=== PATIENT | female | born 1950 | race Two or more races ===

== ENCOUNTER 2021-09-10 12:30 | Inpatient (IN) | payer MEDICARE, MEDICAID ==
[2021-09-09 21:24] VITALS: BP 127/68
[~2021-09-10] VITALS: Ht 157.5 cm; Wt 46.8 kg
[2021-09-10] MEDS ORDERED: MAGNESIUM/ALUMINUM HYDROXIDE/SIMETHICONE 30ML UDC PO STA (13:19)
[2021-09-10] MEDS ORDERED: VISCOUS LIDOCAINE 2% 15 ML UDC PO STA (13:19)
[2021-09-10] MEDS ORDERED: HYDROCODONE/ACETAMINOPHEN 5/325MG TABLET PO STA (13:19)
[2021-09-10] MEDS ORDERED: FAMOTIDINE 20MG TABLET PO ONE (13:30)
[2021-09-10] MEDS ORDERED: HYDROCODONE/ACETAMINOPHEN 5/325MG TABLET PO NR (13:45)
[2021-09-10 13:51] LABS: BASOPHILS % 0.5 % (0.0-2.0); EOSINOPHILS % 0.3 % (0.0-5.0); HEMATOCRIT. 32.8 % (36.0-48.0); HEMOGLOBIN. 11.4 g/dL (12.0-16.0); LYMPHOCYTES % 17.3 % (20.0-50.0); MEAN CORPUSCULAR HEMOGLOBIN 34.8 pg (28.0-32.0); MEAN CORPUSCULAR VOLUME 99.8 fL (81.0-99.0); MEAN PLATELET VOLUME 7.7 fl (7.4-10.4); MONOCYTES % 7.7 % (2.0-8.0); NEUTROPHILS % 74.2 % (40.0-76.0); PLATELET 240 x1000/uL (130-400); RED BLOOD CELL COUNT 3.29 mill/uL (4.2-5.4); RED CELL DISTRIBUTION WIDTH 21.3 % (11.6-14.6)
[2021-09-10 13:52] LABS: CHLORIDE 97 mEq/L (98-107)
[2021-09-10 13:55] LABS: INR 1.1; PROTHROMBIN TIME 11.4 sec (9.6-11.0)
[2021-09-10] MEDS ORDERED: ONDANSETRON HCL 4MG/2ML INJ IV STA (14:09)
[2021-09-10] MEDS ORDERED: MORPHINE SULFATE 2 MG/ML CPJ (NOT FOR IM USE) IV NR (14:15)
[2021-09-10] MEDS ORDERED: MORPHINE SULFATE 4 MG/ML CPJ (NOT FOR IM USE) IV ONE (14:15)
[2021-09-10] MEDS ORDERED: SODIUM CHLORIDE 0.9% 1,000 ML IV ONE (14:15)
[2021-09-10] MEDS ORDERED: POTASSIUM CHLORIDE INJ 40 MEQ in DEXT 5% WATER 250 ML IV ONE (14:15)
[2021-09-10] MEDS ORDERED: METRONIDAZOLE 500 MG PREMIX 100 ML IV NR (15:30)
[2021-09-10] MEDS ORDERED: CEFTRIAXONE 1 G PREMIX 50 ML IV NR (15:30)
[2021-09-10 17:19] LABS: CLARITY URINE CLOUDY (CLEAR); COLOR URINE DARK YELLOW (YELLOW); KETONES URINE 1+ (NEGATIVE); LEUKOCYTE ESTERASE URINE NEGATIVE (NEGATIVE); NITRITE URINE NEGATIVE (NEGATIVE); OCCULT BLOOD URINE NEGATIVE (NEGATIVE); PH URINE 5.5 (4.5-8.0); PROTEIN URINE 2+ (NEGATIVE); SPECIFIC GRAVITY URINE 1.036 (1.005-1.030)
[2021-09-10] MEDS ORDERED: TRAMADOL 50MG TABLET PO PRN (18:00)
[2021-09-10] MEDS ORDERED: DOCUSATE SODIUM 100MG CAPSULE PO PRN (18:00)
[2021-09-10] MEDS ORDERED: IPRATROPIUM/ALBUTEROL 0.5-3(2.5)MG/3ML NEB NEB PRN (18:00)
[2021-09-10] MEDS ORDERED: PIPERACILLIN/TAZ 3.375G PREMIX 50 ML IV SCH (18:00)
[2021-09-10] MEDS ORDERED: ONDANSETRON HCL 4MG/2ML INJ IV PRN (18:00)
[2021-09-10] MEDS ORDERED: GUAIFENESIN 200MG/10ML SUGAR FREE UDC PO PRN (18:00)
[2021-09-10] MEDS ORDERED: ACETAMINOPHEN 325MG TABLET PO PRN ×2 (18:00)
[2021-09-10] MEDS ORDERED: MAGNESIUM/ALUMINUM HYDROXIDE/SIMETHICONE 30ML UDC PO PRN (18:00)
[2021-09-10] MEDS ORDERED: CLONIDINE 0.1MG TABLET PO PRN (18:00)
[2021-09-10] MEDS ORDERED: NA PHOS,M-B/NA PHOS,DI-BA ENEMA 118ML PR PRN (18:00)
[2021-09-10] MEDS ORDERED: NITROGLYCERIN 0.4MG TABLET SL SL PRN (18:00)
[2021-09-10 18:38] LABS: ETHANOL BLOOD < 10 mg/dL
[2021-09-10 18:43] LABS: TOTAL IRON BINDING CAPACITY 201 ug/dL (250-450)
[2021-09-10] MEDS ORDERED: KCL 20MEQ/100ML PREMIX 100 ML IV NR (19:30)
[2021-09-10] MEDS: ENOXAPARIN 30MG/0.3ML SYR SUBCUT SCH (19:34)
[2021-09-10] MEDS: PIPERACILLIN/TAZ 3.375G PREMIX 50 ML IV NR (19:42)
[2021-09-10] MEDS: MORPHINE SULFATE 2 MG/ML CPJ (NOT FOR IM USE) IV PRN (20:45)
[2021-09-10 21:24] VITALS: BP 127/68
[2021-09-10] MEDS: ZOLPIDEM TARTRATE 5MG TABLET PO PRN (23:35)
[2021-09-11] VITALS: BP 130/68
[2021-09-11] MEDS ORDERED: *PATIENT'S OWN MEDICATION STORAGE XX SCH (00:45)
[2021-09-11 04:00] VITALS: BP 100/53
[2021-09-11] MEDS: MORPHINE SULFATE 2 MG/ML CPJ (NOT FOR IM USE) IV PRN ×3 (04:25→17:52)
[2021-09-11] MEDS: PIPERACILLIN/TAZOBACTAM 3.375G in DEXT 5% WATER 50ML IV SCH ×2 (06:17→14:24)
[2021-09-11] MEDS: DEXT 5%/LACTATED RINGERS 1,000 ML IV SCH ×2 (06:20→20:56)
[2021-09-11 07:03] LABS: BASOPHILS % 0.6 % (0.0-2.0); EOSINOPHILS % 0.5 % (0.0-5.0); HEMATOCRIT. 26.3 % (36.0-48.0); HEMOGLOBIN. 9.4 g/dL (12.0-16.0); LYMPHOCYTES % 27.3 % (20.0-50.0); MEAN CORPUSCULAR HEMOGLOBIN 35.7 pg (28.0-32.0); MEAN CORPUSCULAR VOLUME 99.2 fL (81.0-99.0); MONOCYTES % 9.4 % (2.0-8.0); NEUTROPHILS % 62.2 % (40.0-76.0); PLATELET 152 x1000/uL (130-400); RED BLOOD CELL COUNT 2.65 mill/uL (4.2-5.4); RED CELL DISTRIBUTION WIDTH 21.9 % (11.6-14.6)
[2021-09-11 07:29] LABS: CHLORIDE 101 mEq/L (98-107)
[2021-09-11 07:40] LABS: PHOSPHORUS 1.8 mg/dL (2.5-4.9)
[2021-09-11 08:00] VITALS: BP 106/57
[2021-09-11] MEDS ORDERED: NALOXONE HCL 0.4MG/ML VIAL IV PRN (08:45)
[2021-09-11] MEDS: PANTOPRAZOLE SODIUM 40 MG/VIAL IV SCH (08:51)
[2021-09-11] MEDS: ZINC SULFATE 220 MG ( 50 ) CAPSULE PO SCH (08:53)
[2021-09-11] MEDS ORDERED: POTASSIUM CHLORIDE 20MEQ TABLET SR PO SCH (09:00)
[2021-09-11] MEDS ORDERED: POTASSIUM CHLORIDE INJ 40 MEQ in DEXT 5% WATER 500 ML IV NR (11:00)
[2021-09-11 12:00] VITALS: BP 121/69
[2021-09-11 12:49] LABS: *AMPHETAMINES SCREEN URINE NEGATIVE (NEGATIVE); *BARBITURATES SCREEN URINE PRESUMTIVE POSITIVE (NEGATIVE); *COCAINE SCREEN URINE NEGATIVE (NEGATIVE)
[2021-09-11 12:50] LABS: *BENZODIAZEPINES SCREEN URINE NEGATIVE (NEGATIVE); CANNABINOID URINE SCREEN NEGATIVE (NEGATIVE); METHADONE URINE SCREEN NEGATIVE (NEGATIVE); OPIATES URINE SCREEN PRESUMTIVE POSITIVE (NEGATIVE); PHENCYCLIDINE URINE SCREEN NEGATIVE (NEGATIVE)
[2021-09-11 16:00] VITALS: BP 110/64
[2021-09-11] MEDS: ENOXAPARIN 30MG/0.3ML SYR SUBCUT SCH (17:41)
[2021-09-11 20:00] VITALS: BP 118/67
[2021-09-11] MEDS ORDERED: MAGNESIUM 2 G PREMIX 50 ML IV NR (21:00)
[2021-09-11] MEDS ORDERED: POTASSIUM PHOS,M-BASIC-D-BASIC 20 MMOL in DEXT 5% WATER 243.3333 ML IV NR (21:00)
[2021-09-12] VITALS (7 sets, daily range): BP systolic 91–142; BP diastolic 55–89
[2021-09-12] MEDS: MORPHINE SULFATE 2 MG/ML CPJ (NOT FOR IM USE) IV PRN ×4 (04:01→17:37)
[2021-09-12] MEDS: PIPERACILLIN/TAZOBACTAM 3.375G in DEXT 5% WATER 50ML IV SCH ×3 (04:06→22:00)
[2021-09-12] MEDS: ZINC SULFATE 220 MG ( 50 ) CAPSULE PO SCH (09:06)
[2021-09-12] MEDS: FOLIC ACID 1MG TABLET PO SCH (09:06)
[2021-09-12] MEDS: PANTOPRAZOLE SODIUM 40 MG/VIAL IV SCH (09:06)
[2021-09-12] MEDS: MULTIVITAMINS,THER W-MINERALS TABLET PO SCH (09:06)
[2021-09-12] MEDS: DEXT 5%/LACTATED RINGERS 1,000 ML IV SCH ×2 (09:07→23:20)
[2021-09-12] MEDS: THIAMINE HCL 100MG TABLET PO SCH (09:07)
[2021-09-12 09:59] LABS: BASOPHILS % 0.4 % (0.0-2.0); EOSINOPHILS % 0.3 % (0.0-5.0); HEMATOCRIT. 28.2 % (36.0-48.0); HEMOGLOBIN. 9.8 g/dL (12.0-16.0); LYMPHOCYTES % 22.4 % (20.0-50.0); MEAN CORPUSCULAR HEMOGLOBIN 35.1 pg (28.0-32.0); MEAN CORPUSCULAR VOLUME 101.5 fL (81.0-99.0); MEAN PLATELET VOLUME 8.2 fl (7.4-10.4); NEUTROPHILS % 63.9 % (40.0-76.0); PLATELET 131 x1000/uL (130-400); RED BLOOD CELL COUNT 2.78 mill/uL (4.2-5.4); RED CELL DISTRIBUTION WIDTH 21.7 % (11.6-14.6)
[2021-09-12 10:11] LABS: CHLORIDE 103 mEq/L (98-107)
[2021-09-12 10:20] LABS: PHOSPHORUS 2.6 mg/dL (2.5-4.9)
[2021-09-12] MEDS ORDERED: POTASSIUM CHLORIDE INJ 60 MEQ in DEXT 5% WATER 500 ML IV SCH (13:00)
[2021-09-12] MEDS: ENOXAPARIN 30MG/0.3ML SYR SUBCUT SCH (18:19)
[2021-09-12] MEDS ORDERED: VANCOMYCIN HCL 1000 MG/20 ML ORAL PO SCH (18:30)
[2021-09-12] MEDS: VANCOMYCIN HCL 1000 MG/20 ML ORAL PO SCH (19:30)
[2021-09-13] VITALS: BP 140/77
[2021-09-13] MEDS: VANCOMYCIN HCL 1000 MG/20 ML ORAL PO SCH ×5 (01:11→18:22)
[2021-09-13] MEDS: MORPHINE SULFATE 2 MG/ML CPJ (NOT FOR IM USE) IV PRN ×5 (01:11→18:53)
[2021-09-13 01:48] LABS: FOLIC ACID (FOLATE) SERUM 2.6 ng/mL (>5.38)
[2021-09-13 04:00] VITALS: BP 115/70
[2021-09-13] MEDS: PIPERACILLIN/TAZOBACTAM 3.375G in DEXT 5% WATER 50ML IV SCH ×3 (06:00→21:55)
[2021-09-13 07:27] LABS: BASOPHILS % 0.4 % (0.0-2.0); EOSINOPHILS % 0.8 % (0.0-5.0); HEMOGLOBIN. 9.8 g/dL (12.0-16.0); LYMPHOCYTES % 27.6 % (20.0-50.0); MEAN CORPUSCULAR HEMOGLOBIN 35.5 pg (28.0-32.0); MEAN CORPUSCULAR VOLUME 101.5 fL (81.0-99.0); MEAN PLATELET VOLUME 8.4 fl (7.4-10.4); MONOCYTES % 12.4 % (2.0-8.0); NEUTROPHILS % 58.8 % (40.0-76.0); PLATELET 123 x1000/uL (130-400); RED BLOOD CELL COUNT 2.76 mill/uL (4.2-5.4); RED CELL DISTRIBUTION WIDTH 21.9 % (11.6-14.6)
[2021-09-13 07:29] LABS: CHLORIDE 104 mEq/L (98-107)
[2021-09-13 08:00] VITALS: BP 131/79
[2021-09-13] MEDS: ZINC SULFATE 220 MG ( 50 ) CAPSULE PO SCH (09:00)
[2021-09-13] MEDS: THIAMINE HCL 100MG TABLET PO SCH (09:00)
[2021-09-13] MEDS: FOLIC ACID 1MG TABLET PO SCH (09:00)
[2021-09-13] MEDS: MULTIVITAMINS,THER W-MINERALS TABLET PO SCH (09:00)
[2021-09-13] MEDS: PANTOPRAZOLE SODIUM 40 MG/VIAL IV SCH (09:04)
[2021-09-13] MEDS: DEXT 5%/LACTATED RINGERS 1,000 ML IV SCH (11:59)
[2021-09-13 12:00] VITALS: BP 118/68
[2021-09-13] MEDS: PIPERACILLIN/TAZ 3.375G PREMIX 50 ML IV NR (14:52)
[2021-09-13 16:00] VITALS: BP 105/62
[2021-09-13] MEDS: ENOXAPARIN 30MG/0.3ML SYR SUBCUT SCH (18:21)
[2021-09-13 20:00] VITALS: BP 96/53
[2021-09-13] MEDS: ZOLPIDEM TARTRATE 5MG TABLET PO PRN (21:55)
[2021-09-14] VITALS: BP 116/59
[2021-09-14] MEDS: VANCOMYCIN HCL 1000 MG/20 ML ORAL PO SCH ×5 (00:49→23:18)
[2021-09-14] MEDS: MORPHINE SULFATE 2 MG/ML CPJ (NOT FOR IM USE) IV PRN ×5 (01:50→22:09)
[2021-09-14] MEDS: DEXT 5%/LACTATED RINGERS 1,000 ML IV SCH ×2 (02:00→15:20)
[2021-09-14 04:00] VITALS: BP 119/71
[2021-09-14] MEDS: PIPERACILLIN/TAZOBACTAM 3.375G in DEXT 5% WATER 50ML IV SCH (06:18)
[2021-09-14 08:00] VITALS: BP 116/65
[2021-09-14] MEDS: ZINC SULFATE 220 MG ( 50 ) CAPSULE PO SCH ×2 (09:00→09:41)
[2021-09-14] MEDS: FOLIC ACID 1MG TABLET PO SCH ×2 (09:00→09:41)
[2021-09-14] MEDS: MULTIVITAMINS,THER W-MINERALS TABLET PO SCH ×2 (09:00→09:41)
[2021-09-14] MEDS: THIAMINE HCL 100MG TABLET PO SCH ×2 (09:00→09:41)
[2021-09-14] MEDS: FAMOTIDINE 20MG/2ML VIAL IV SCH (09:41)
[2021-09-14] MEDS ORDERED: AZITHROMYCIN 500 MG TABLET PO SCH (10:00)
[2021-09-14 12:00] VITALS: BP 124/72
[2021-09-14] MEDS ORDERED: AZITHROMYCIN 500 MG in DEXT 5% WATER 250 ML IV SCH (15:00)
[2021-09-14] MEDS ORDERED: KCL 20MEQ/100ML PREMIX 100 ML IV SCH (15:00)
[2021-09-14 16:00] VITALS: BP 111/65
[2021-09-14] MEDS: ENOXAPARIN 30MG/0.3ML SYR SUBCUT SCH (18:12)
[2021-09-14 20:00] VITALS: BP 125/69
[2021-09-14] MEDS: ZOLPIDEM TARTRATE 5MG TABLET PO PRN (23:18)
[2021-09-15] VITALS: BP 118/58
[2021-09-15 04:00] VITALS: BP 128/60
[2021-09-15] MEDS: DEXT 5%/LACTATED RINGERS 1,000 ML IV SCH (04:40)
[2021-09-15] MEDS: VANCOMYCIN HCL 1000 MG/20 ML ORAL PO SCH ×2 (06:37→12:30)
[2021-09-15] MEDS: MORPHINE SULFATE 2 MG/ML CPJ (NOT FOR IM USE) IV PRN ×2 (06:38→11:50)
[2021-09-15 08:00] VITALS: BP 118/66
[2021-09-15] MEDS: THIAMINE HCL 100MG TABLET PO SCH (09:33)
[2021-09-15] MEDS: FOLIC ACID 1MG TABLET PO SCH (09:33)
[2021-09-15] MEDS: ZINC SULFATE 220 MG ( 50 ) CAPSULE PO SCH (09:33)
[2021-09-15] MEDS: MULTIVITAMINS,THER W-MINERALS TABLET PO SCH (09:33)
[2021-09-15] MEDS: FAMOTIDINE 20MG/2ML VIAL IV SCH (09:47)
[2021-09-15 12:00] VITALS: BP 133/79
[2021-09-15 12:00] LABS: BASOPHILS % 0.4 % (0.0-2.0); EOSINOPHILS % 0.9 % (0.0-5.0); HEMATOCRIT. 31.5 % (36.0-48.0); HEMOGLOBIN. 10.9 g/dL (12.0-16.0); LYMPHOCYTES % 19.4 % (20.0-50.0); MEAN CORPUSCULAR HEMOGLOBIN 35.4 pg (28.0-32.0); MEAN PLATELET VOLUME 8.6 fl (7.4-10.4); MONOCYTES % 14.8 % (2.0-8.0); NEUTROPHILS % 64.5 % (40.0-76.0); PLATELET 152 x1000/uL (130-400); RED BLOOD CELL COUNT 3.09 mill/uL (4.2-5.4); RED CELL DISTRIBUTION WIDTH 22.8 % (11.6-14.6)
[2021-09-15 12:14] LABS: CHLORIDE 103 mEq/L (98-107)
[2021-09-15] MEDS ORDERED: TRIA0.2579 PO (12:49)
[2021-09-15] MEDS ORDERED: BUTA1CAP45 MT (12:49)
[2021-09-15] MEDS ORDERED: T4 PO (12:51)
[2021-09-15 13:25] LABS: HEPATITIS B SURFACE ANTIGEN NEGATIVE
[2021-09-15 14:09] LABS: PLATELET ESTIMATE NORMAL
[2021-09-15] MEDS ORDERED: POTASSIUM CHLORIDE 20MEQ/PACKET PO NR (19:15)
[2021-09-16] MEDS ORDERED: FAMOTIDINE 20MG TABLET PO SCH (09:00)
== END 2021-09-15 15:55 | disposition home or self-care (01) | DRG 445 ==
LOC: ER 12:30 → 6EST 17:02 → EDBEDREQTM 17:13 → EDBEDREQ 17:13 → SUPCPDRO 18:07 → ENRESERV 20:04
PROVIDERS: ADMIT Internal Medicine; ATTEND Internal Medicine
DX: K80.20 Calculus of gallbladder without cholecystitis without obstruction (principal); E44.1 Mild protein-calorie malnutrition; A04.72 Enterocolitis due to Clostridium difficile, not specified as recurrent; K83.09 Other cholangitis; Z68.1 Body mass index [BMI] 19.9 or less, adult; K70.10 Alcoholic hepatitis without ascites; E83.51 Hypocalcemia; D63.8 Anemia in other chronic diseases classified elsewhere; D53.9 Nutritional anemia, unspecified; E87.6 Hypokalemia; F17.210 Nicotine dependence, cigarettes, uncomplicated; I10 Essential (primary) hypertension; K76.0 Fatty (change of) liver, not elsewhere classified; F10.20 Alcohol dependence, uncomplicated; K83.8 Other specified diseases of biliary tract; K82.8 Other specified diseases of gallbladder; Y90.9 Presence of alcohol in blood, level not specified; Z88.6 Allergy status to analgesic agent
CPT/HCPCS: 36415; 74176; 74181; 76705; 78227; 80048; 80053; 80076; 80305; 80320; 81003; 82248; 82270; 82607; 82728; 82746; 83540; 83550; 83735; 84100; 85025; 86705; 86709; 86803; 87015; 87045; 87177; 87209; 87340; 87427; 87449; 87493; 89055; 93005; 93970; 99285; A9537; C1893; C9113; J0456; J0696; J1650; J2270; J2405; J2543; J3370; J3475; J3480; J3490; J7030; J7040; J7060; G0480